=== PATIENT | female | born 1965 | race Caucasian/White ===

== ENCOUNTER 2016-09-21 00:48 | Emergency (ER) | payer OTHER ==
--- NOTE | 2016-09-21 01:54 | ED ORDER SUMMARY ---
..... Patient: GLADIS GARCIA OrderSheet [facility] VisitID: [id number] [place] [address] 51y, F Registration Date/Time: 09/21/2016 ORDER SHEET Weight: 95.2 kg (stated) Allergies: No Known Drug Allergy GENERAL ORDERS: I&D Tray (01:19 09/21/2016 José Wick) (1:31 Sam R.N.) MEDICATION ORDERS: Clindamycin PO 300 mg (NOW) (01:43 09/21/2016 José Wick) (2:00 Marissa R.NNeil) IV FLUIDS: ORDER SHEET NOTES: [Electronically signed by Scott Ward Dr. (01:56 09/21/2016)] [Electronically signed by Gustavo Dave R.N. (02:06 09/21/2016)] [Electronically locked/signed by Gustavo Dave R.N. (02:06 09/21/2016)]
--- NOTE | 2016-09-21 01:54 | ED CLINICAL REPORT ---
Clinical Report - Physicians/Mid Levels [facility] [address] [place] [address] 09/21/2016 0:47 Patient: GLADIS GARCIA Time Seen: 00:56; initial patient contact. Arrived- By private vehicle. Historian- patient. HISTORY OF PRESENT ILLNESS Chief Complaint: BOIL. This started about 3 days ago and is still present and worsening. It was gradual in onset. It is described as painful. It has been located in the right axilla. No cause has been identified. No recent insect bite. Similar symptoms previously: None. Recent medical care: Not recently seen/assessed. REVIEW OF SYSTEMS No fever, chills, nausea or vomiting. She has had a single skin lesion described as painful, abscess. All systems otherwise negative, except as recorded above. PAST HISTORY Mesenteric Melba Embolus. URI. Arthritis. SURGERIES: Carpal Tunnel Surgery. Tonsillectomy. SOCIAL HISTORY Current every day smoker. Regular alcohol use. No drug use. ADDITIONAL NOTES The nursing notes have been reviewed. PHYSICAL EXAM Vital Signs: 09/21/2016 00:57 BP: 128/65. HR: 107. RR: 24. O2 saturation: 95%. Temp: 98.2 F. Pain level now: 7/10. Have been reviewed. Blood pressure normal. Tachycardic. Tachypneic. Temperature normal. Oxygen saturation normal. Appearance: Alert. Oriented X3. No acute distress. Eyes: Conjunctivae and eyelids normal. ENT: Pharynx normal. Skin: Skin warm and dry. Normal skin color. Single medium abscess with fluctuance, pointing and cellulitis to right axilla. No drainage. Extremities: Extremities nontender. Neuro: Oriented X 3. No motor deficit. PROGRESS AND PROCEDURES Incision & Drainage of Abscess: Time: 01:53. Per protocol, time-out completed immediately before the procedure. The abscess is located in the right axilla. The risks of the procedure, benefits and alternatives were explained. Local anesthesia provided using 2% lidocaine. Skin cleansed with Shur-Clens. A moderate amount of pus was drained. Cavity was irrigated with saline and packed with gauze. Sample obtained for cultures. A dressing was applied. Estimated blood loss: 5 mL. Disposition: Discharged home in good and improved condition. Condition: good. CLINICAL IMPRESSION Single deep abscess to the right axilla with incision and drainage. INSTRUCTIONS Your Current Medications: CONTINUE TAKING THE FOLLOWING MEDICATIONS: Aspirin Oral. Maloxicam*. Omeprazole Oral : 20 mg 2x a day. Prescription Medications: Hydrocodone/APAP 5mg / 325mg: take 1 orally every 6 hours as needed for pain. Dispense ten (10). No refill. Clindamycin 300 mg: take 1 capsule orally every 6 hours for 7 days. No refill. Follow-up: Return to the emergency department in two days for packing removal. Follow up with your doctor in about two days. Call for an appointment. Screening today revealed the patient's blood pressure to be in the pre-hypertensive range. The patient should follow up with a primary care provider for blood pressure management. (Electronically signed by Scott Ward Dr. 09/21/2016 1:56)
--- NOTE | 2016-09-21 01:54 | ED CLINICAL REPORT ---
Clinical Report - Physicians/Mid Levels [facility] [address] [place] [address] 09/21/2016 0:47 Patient: GLADIS GARCIA Time Seen: 00:56; initial patient contact. Arrived- By private vehicle. Historian- patient. HISTORY OF PRESENT ILLNESS Chief Complaint: BOIL. This started about 3 days ago and is still present and worsening. It was gradual in onset. It is described as painful. It has been located in the right axilla. No cause has been identified. No recent insect bite. Similar symptoms previously: None. Recent medical care: Not recently seen/assessed. REVIEW OF SYSTEMS No fever, chills, nausea or vomiting. She has had a single skin lesion described as painful, abscess. All systems otherwise negative, except as recorded above. PAST HISTORY Mesenteric Melba Embolus. URI. Arthritis. SURGERIES: Carpal Tunnel Surgery. Tonsillectomy. SOCIAL HISTORY Current every day smoker. Regular alcohol use. No drug use. ADDITIONAL NOTES The nursing notes have been reviewed. PHYSICAL EXAM Vital Signs: 09/21/2016 00:57 BP: 128/65. HR: 107. RR: 24. O2 saturation: 95%. Temp: 98.2 F. Pain level now: 7/10. Have been reviewed. Blood pressure normal. Tachycardic. Tachypneic. Temperature normal. Oxygen saturation normal. Appearance: Alert. Oriented X3. No acute distress. Eyes: Conjunctivae and eyelids normal. ENT: Pharynx normal. Skin: Skin warm and dry. Normal skin color. Single medium abscess with fluctuance, pointing and cellulitis to right axilla. No drainage. Extremities: Extremities nontender. Neuro: Oriented X 3. No motor deficit. PROGRESS AND PROCEDURES Incision & Drainage of Abscess: Time: 01:53. Per protocol, time-out completed immediately before the procedure. The abscess is located in the right axilla. The risks of the procedure, benefits and alternatives were explained. Local anesthesia provided using 2% lidocaine. Skin cleansed with Shur-Clens. A moderate amount of pus was drained. Cavity was irrigated with saline and packed with gauze. Sample obtained for cultures. A dressing was applied. Estimated blood loss: 5 mL. Disposition: Discharged home in good and improved condition. Condition: good. CLINICAL IMPRESSION Single deep abscess to the right axilla with incision and drainage. INSTRUCTIONS Your Current Medications: CONTINUE TAKING THE FOLLOWING MEDICATIONS: Aspirin Oral. Maloxicam*. Omeprazole Oral : 20 mg 2x a day. Prescription Medications: Hydrocodone/APAP 5mg / 325mg: take 1 orally every 6 hours as needed for pain. Dispense ten (10). No refill. Clindamycin 300 mg: take 1 capsule orally every 6 hours for 7 days. No refill. Follow-up: Return to the emergency department in two days for packing removal. Follow up with your doctor in about two days. Call for an appointment. Screening today revealed the patient's blood pressure to be in the pre-hypertensive range. The patient should follow up with a primary care provider for blood pressure management. (Electronically signed by Scott Ward Dr. 09/21/2016 1:56)
--- NOTE | 2016-09-21 01:54 | ED ORDER SUMMARY ---
..... Patient: GLADIS GARCIA OrderSheet [facility] VisitID: [id number] [place] [address] 51y, F Registration Date/Time: 09/21/2016 ORDER SHEET Weight: 95.2 kg (stated) Allergies: No Known Drug Allergy GENERAL ORDERS: I&D Tray (01:19 09/21/2016 José Wick) (1:31 Sam R.N.) MEDICATION ORDERS: Clindamycin PO 300 mg (NOW) (01:43 09/21/2016 José Wick) (2:00 Marissa R.NNeil) IV FLUIDS: ORDER SHEET NOTES: [Electronically signed by Scott Ward Dr. (01:56 09/21/2016)] [Electronically signed by Gustavo Dave R.N. (02:06 09/21/2016)] [Electronically locked/signed by Gustavo Dave R.N. (02:06 09/21/2016)]
--- NOTE | 2016-09-21 01:54 | ED NURSING NOTES ---
Clinical Report - Nurses [facility] [address] [place] [address] 09/21/2016 0:47 [id number] Triage time 00:58. Acuity: LEVEL 4. Chief Complaint: BOIL and TENDER AREA. Alert. No acute distress. NAREN COMA SCORE: Naren Coma Scale: 15- eyes open spontaneously (4); best verbal response- oriented x 4 (5); best motor response- obeys commands (6). --01:03 Gustavo Dave R.N. 00:57 09/21/16. BP: 128/65. HR: 107. RR: 24 (regular and unlabored). O2 saturation: 95% on room air. Temp: 98.2 F (oral). Pain level now: 11/03. --01:03 Gustavo Dave R.N. Weight: 95.2 kg stated. Height/Length: 66 inches Per Patient. BMI: 33.9. --01:02 Gustavo Dave R.N. Medications Omeprazole Oral 20 mg, 2x a day. --00:59 Gustavo Dave R.N. Maloxicam. --01:00 Gustavo Dave R.N. Aspirin Oral. --01:00 Gustavo Dave R.N. Allergies No Known Drug Allergy. --00:59 Gustavo Dave R.N. History Arrived by private vehicle. Historian: patient. Unaccompanied. Reported as (right axilla area). Onset. (2 days ago). PAST MEDICAL HX: ( denies a chance of having ). SOCIAL HX: Heavy tobacco smoker (cigarette)- 1 pack per day. Regular alcohol use. No drug use. ( states that she feels safe at home, denies HI/SI). --01:03 Gustavo Dave R.N. PROBLEMS: Mesenteric Melba Embolus. URI. Arthritis. --01:01 Gustavo Dave R.N. ADDITIONAL SURGERIES: Carpal Tunnel Surgery. Tonsillectomy. --01:02 Gustavo Dave R.N. Interventions ID band on patient. To treatment room. --01:03 Gustavo Dave R.N. PHYSICAL ASSESSMENT Ambulatory to room. ( patient states having abscesses in the past. she has a red raised area of tenderness under right armpit, starting 2 days ago. tender to touch and movement.). GENERAL / NEURO / PSYCH: Alert. Oriented X 4. Does not appear anxious or in distress. HEENT: Mucous membranes are pink. RESPIRATORY: Respirations not labored. CVS: Capillary refill less than 2 seconds. GI / : Abdomen nontender. SKIN: Skin is warm and dry. --01:04 Gustavo Dave R.N. NURSING PROGRESS NOTES Patient gowned. Head of bed elevated. Reassurance given. Two patient identifiers checked. Call light placed in reach. Side rails up x 1. Bed placed in lowest position. Brakes of bed on. Patient ready for evaluation- chart flagged. Patient waiting for evaluation. --01:05 Gustavo Dave R.N. 01:50 09/21/2016 Clindamycin PO Capsules 300 mg given. Allergies verified and confirmed 5 rights. --02:00 Gustavo Dave R.N. ( I bandaged the patient's right arm pit abscess site with a 4x4 and a tegaderm per Dr. Ward's instructions.). --02:00 Gustavo Dave R.N. DISPOSITION / DISCHARGE Departure time: 02:05. Condition at departure: stable. Discharge instructions provided and reviewed with the patient. Reviewed warnings. Reviewed medication(s) side effects, precautions, dosing and course information. Prescription(s) given to the patient. Treatments reviewed. Reviewed referrals for followup. Patient verbalized understanding. Written instructions provided in Niuean. The patient was discharged home and unaccompanied at time of discharge. She left the Emergency Department ambulatory and via private vehicle. Patient driving. --02:06 Gustavo Dave R.N. 02:00 09/21/16. BP: 128/81 taken on the left arm, while sitting. HR: 102. RR: 24 (regular and unlabored). O2 saturation: 96% on room air. Temp: 97.6 F (oral). Pain level now: 11/03. --02:06 Gustavo Dave R.N. Locked/Released at 09/21/2016 2:06 by Gustavo Dave R.N.
--- NOTE | 2016-09-21 02:07 | ED DISCHARGE INSTRUCTIONS ---
Patient: GLADIS GARCIA General Instructions [facility] VisitID: [id number] [place] [address] 51y, F Registration Date/Time: 09/21/2016 Single deep abscess to the right axilla with incision and drainage. INSTRUCTIONS Your Current Medications: CONTINUE TAKING THE FOLLOWING MEDICATIONS: Aspirin Oral. Maloxicam*. Omeprazole Oral : 20 mg 2x a day. Prescription Medications: Hydrocodone/APAP 5mg / 325mg: take 1 orally every 6 hours as needed for pain. Dispense ten (10). No refill. Clindamycin 300 mg: take 1 capsule orally every 6 hours for 7 days. No refill. Follow-up: Return to the emergency department in two days for packing removal. Follow up with your doctor in about two days. Call for an appointment. Screening today revealed the patient's blood pressure to be in the pre-hypertensive range. The patient should follow up with a primary care provider for blood pressure management. ADDITIONAL INFORMATION Abscess [Incision & Drainage] An abscess (sometimes called a boil) occurs when bacteria get trapped under the skin and begin to grow. Pus forms inside the abscess as the body responds to the bacteria. An abscess can occur with an insect bite, ingrown hair, blocked oil gland, pimple, cyst, or puncture wound. Treatment of your abscess has required an incision to drain the pus. If the abscess pocket was large, a gauze packing may have been inserted. This will need to be removed and possibly replaced on your next visit. Antibiotics are not required in the treatment of a simple abscess, unless the infection is spreading into the skin around the wound (known as cellulitis). Healing of the wound will take about one to two weeks depending on the size of the abscess. Healthy tissue will grow from the bottom and sides of the opening until it seals over. Home Care: The wound may drain for the first two days. Cover the wound with a clean dry dressing. If the dressing becomes soaked with blood or pus, change it. If a gauze packing was placed inside the abscess cavity, you may be advised to remove it yourself. You may do this in the shower. Once the packing is removed, you should wash the area in the shower or bath 3 to 4 times a day, until the skin opening has closed. If you were prescribed antibiotics, take them as directed until they are all gone. You may use acetaminophen (Tylenol) or ibuprofen (Motrin, Advil) to control pain, unless another pain medicine was prescribed. [ NOTE: If you have liver disease or ever had a stomach ulcer, talk with your doctor before using these medicines.] Follow Up with your doctor as advised by our staff. If a gauze packing was inserted in your wound, it should be removed in 1-2 days. Check your wound every day for the signs of worsening infection listed below. Get Prompt Medical Attention if any of the following occur: Increasing redness or swelling Red streaks in the skin leading away from the wound Increasing local pain or swelling Continued pus draining from the wound two days after treatment Fever of 100.4F (38C) or higher, or as directed by your healthcare provider Hydrocodone Bitartrate, Acetaminophen Oral tablet What is this medicine? ACETAMINOPHEN; HYDROCODONE (a set a CIARAN susan fen; lety droe KOE done) is a pain reliever. It is used to treat mild to moderate pain. How should I use this medicine? Take this medicine by mouth. Swallow it with a full glass of water. Follow the directions on the prescription label. If the medicine upsets your stomach, take the medicine with food or milk. Do not take more than you are told to take. Talk to your wastewater plant civil engineer regarding the use of this medicine in children. This medicine is not approved for use in children. What side effects may I notice from receiving this medicine? Side effects that you should report to your doctor or health client care coordinator as soon as possible: allergic reactions like skin rash, itching or hives, swelling of the face, lips, or tongue breathing problems confusion feeling faint or lightheaded, falls stomach pain yellowing of the eyes or skin Side effects that usually do not require medical attention (report to your doctor or health client care coordinator if they continue or are bothersome): nausea, vomiting stomach upset What may interact with this medicine? alcohol antihistamines isoniazid medicines for depression, anxiety, or psychotic disturbances medicines for sleep muscle relaxants naltrexone narcotic medicines (opiates) for pain phenobarbital ritonavir tramadol What if I miss a dose? If you miss a dose, take it as soon as you can. If it is almost time for your next dose, take only that dose. Do not take double or extra doses. Where should I keep my medicine? Keep out of the reach of children. This medicine can be abused. Keep your medicine in a safe place to protect it from theft. Do not share this medicine with anyone. Selling or giving away this medicine is dangerous and against the law. Store at room temperature between 15 and 30 degrees C (59 and 86 degrees F). Protect from light. Keep container tightly closed. Throw away any unused medicine after the expiration date. Discard unused medicine and used packaging carefully. Pets and children can be harmed if they find used or lost packages. What should I tell my health care provider before I take this medicine? They need to know if you have any of these conditions: brain tumor Crohn's disease, inflammatory bowel disease, or ulcerative colitis drink more than 3 alcohol-containing drinks per day drug abuse or addiction head injury heart or circulation problems kidney disease or problems going to the bathroom liver disease lung disease, asthma, or breathing problems an unusual or allergic reaction to acetaminophen, hydrocodone, other opioid analgesics, other medicines, foods, dyes, or preservatives or trying to get breast-feeding What should I watch for while using this medicine? Tell your doctor or health client care coordinator if your pain does not go away, if it gets worse, or if you have new or a different type of pain. You may develop tolerance to the medicine. Tolerance means that you will need a higher dose of the medicine for pain relief. Tolerance is normal and is expected if you take the medicine for a long time. Do not suddenly stop taking your medicine because you may develop a severe reaction. Your body becomes used to the medicine. This does NOT mean you are addicted. Addiction is a behavior related to getting and using a drug for a non-medical reason. If you have pain, you have a medical reason to take pain medicine. Your doctor will tell you how much medicine to take. If your doctor wants you to stop the medicine, the dose will be slowly lowered over time to avoid any side effects. You may get drowsy or dizzy when you first start taking the medicine or change doses. Do not drive, use machinery, or do anything that may be dangerous until you know how the medicine affects you. Stand or sit up slowly. There are different types of narcotic medicines (opiates) for pain. If you take more than one type at the same time, you may have more side effects. Give your health care provider a list of all medicines you use. Your doctor will tell you how much medicine to take. Do not take more medicine than directed. Call emergency for help if you have problems breathing. The medicine will cause constipation. Try to have a bowel movement at least every 2 to 3 days. If you do not have a bowel movement for 3 days, call your doctor or health client care coordinator. Too much acetaminophen can be very dangerous. Do not take Tylenol (acetaminophen) or medicines that contain acetaminophen with this medicine. Many non-prescription medicines contain acetaminophen. Always read the labels carefully. Clindamycin Hydrochloride Oral capsule What is this medicine? CLINDAMYCIN (JOON Barcenas) is a lincosamide antibiotic. It is used to treat certain kinds of bacterial infections. It will not work for colds, flu, or other viral infections. How should I use this medicine? Take this medicine by mouth with a full glass of water. Follow the directions on the prescription label. You can take this medicine with food or on an empty stomach. If the medicine upsets your stomach, take it with food. Take your medicine at regular intervals. Do not take your medicine more often than directed. Take all of your medicine as directed even if you think your are better. Do not skip doses or stop your medicine early. Talk to your wastewater plant civil engineer regarding the use of this medicine in children. Special care may be needed. What side effects may I notice from receiving this medicine? Side effects that you should report to your doctor or health client care coordinator as soon as possible: allergic reactions like skin rash, itching or hives, swelling of the face, lips, or tongue dark urine pain on swallowing redness, blistering, peeling or loosening of the skin, including inside the mouth unusual bleeding or bruising unusually weak or tired yellowing of eyes or skin Side effects that usually do not require medical attention (report to your doctor or health client care coordinator if they continue or are bothersome): diarrhea itching in the rectal or genital area joint pain nausea, vomiting stomach pain What may interact with this medicine? chloramphenicol erythromycin kaolin products What if I miss a dose? If you miss a dose, take it as soon as you can. If it is almost time for your next dose, take only that dose. Do not take double or extra doses. Where should I keep my medicine? Keep out of the reach of children. Store at room temperature between 20 and 25 degrees C (68 and 77 degrees F). Throw away any unused medicine after the expiration date. What should I tell my health care provider before I take this medicine? They need to know if you have any of these conditions: kidney disease liver disease stomach problems like colitis an unusual or allergic reaction to clindamycin, lincomycin, or other medicines, foods, dyes like tartrazine or preservatives or trying to get breast-feeding What should I watch for while using this medicine? Tell your doctor or healthcare professional if your symptoms do not start to get better or if they get worse. Do not treat diarrhea with over the counter products. Contact your doctor if you have diarrhea that lasts more than 2 days or if it is severe and watery. You have been given the following additional information: Abscess, Incision And Drainage Hydrocodone Bitartrate, Acetaminophen Oral tablet Clindamycin Hydrochloride Oral capsule (Electronically signed by Scott Ward Dr. 09/21/2016 1:56)
--- NOTE | 2016-09-21 02:07 | ED MAR SUMMARY ---
..... Medication Administration Record [facility] [address] [place] [address] Patient: GLADIS GARCIA Visit ID: [id number] 51y, F Weight: 95.2 kg Height/Length: 66 in BMI: 33.9 ALLERGIES: No Known Drug Allergy Given 01:50 09/21/2016 Gustavo Dave R.N. Medication Administered: CLINDAMYCIN [PO], Dose: 300 mg Capsules PO. Medication Ordered: Clindamycin PO 300 mg (NOW).
--- NOTE | 2016-09-21 02:07 | ED MAR SUMMARY ---
..... Medication Administration Record [facility] [address] [place] [address] Patient: GLADIS GARCIA Visit ID: [id number] 51y, F Weight: 95.2 kg Height/Length: 66 in BMI: 33.9 ALLERGIES: No Known Drug Allergy Given 01:50 09/21/2016 Gustavo Dave R.N. Medication Administered: CLINDAMYCIN [PO], Dose: 300 mg Capsules PO. Medication Ordered: Clindamycin PO 300 mg (NOW).
--- NOTE | 2016-09-21 02:07 | ED MED RECONCILIATION SUMMARY ---
Patient: GLADIS GARCIA Medication Reconciliation Report [facility] VisitID: [id number] [place] [address] 51y, F Registration Date/Time: 09/21/2016 Weight: 95.2 kg Height/Length: 66 in. BMI: 33.9 ALLERGIES: No Known Drug Allergy The patient's Home Medications are listed below: CONTINUE TAKING THE FOLLOWING MEDICATIONS: Aspirin Oral Maloxicam Omeprazole Oral 20 mg, 2x a day The source(s) of the original Home Medication information: Not obtained. The following Medications were given to the patient in the Emergency Department: Clindamycin [PO] PO 300 mg, administered: 09/21/2016 1:50:00 AM The following Medications were prescribed to the patient: Hydrocodone/APAP 5mg / 325mg: take 1 orally every 6 hours as needed for pain. Dispense ten (10). No refill. -- Scott Ward Dr. Clindamycin 300 mg: take 1 capsule orally every 6 hours for 7 days. No refill. -- Scott Ward Dr.
--- NOTE | 2016-09-21 02:07 | ED MED RECONCILIATION SUMMARY ---
Patient: GLADIS GARCIA Medication Reconciliation Report [facility] VisitID: [id number] [place] [address] 51y, F Registration Date/Time: 09/21/2016 Weight: 95.2 kg Height/Length: 66 in. BMI: 33.9 ALLERGIES: No Known Drug Allergy The patient's Home Medications are listed below: CONTINUE TAKING THE FOLLOWING MEDICATIONS: Aspirin Oral Maloxicam Omeprazole Oral 20 mg, 2x a day The source(s) of the original Home Medication information: Not obtained. The following Medications were given to the patient in the Emergency Department: Clindamycin [PO] PO 300 mg, administered: 09/21/2016 1:50:00 AM The following Medications were prescribed to the patient: Hydrocodone/APAP 5mg / 325mg: take 1 orally every 6 hours as needed for pain. Dispense ten (10). No refill. -- Scott Ward Dr. Clindamycin 300 mg: take 1 capsule orally every 6 hours for 7 days. No refill. -- Scott Ward Dr.
== END 2016-09-21 02:05 | disposition home or self-care (01) ==
LOC: ED SRH 00:48
DX: L02.411 Cutaneous abscess of right axilla (principal); Z79.82 Long term (current) use of aspirin; Z79.899 Other long term (current) drug therapy; Z79.1 Long term (current) use of non-steroidal anti-inflammatories (NSAID); F17.210 Nicotine dependence, cigarettes, uncomplicated

== ENCOUNTER 2016-09-23 01:29 | Emergency (ER) | payer OTHER ==
--- NOTE | 2016-09-23 01:56 | ED CLINICAL REPORT ---
Clinical Report - Physicians/Mid Levels [facility] [address] [place] [address] 09/23/2016 1:30 Patient: GLADIS GARCIA Time Seen: 0136; initial patient contact. Arrived- By private vehicle. Historian- patient. HISTORY OF PRESENT ILLNESS Chief Complaint: BOIL. This started past week or more and is still present but is improving. It was abrupt in onset and has been constant but is not gone now. It is described as painful. It has been located on the right upper extremity (axilla). (Doing well. Taking abx as directed. No problems.). Similar symptoms previously: Recent medical care: The patient was seen recently in the emergency department (had abscess I & D.). REVIEW OF SYSTEMS No fever, difficulty breathing, chest pain or abdominal pain. All systems otherwise negative, except as recorded above. PAST HISTORY See nurses notes. Tetanus immunization status is up-to-date. Medications: Aspirin Oral. Maloxicam. Omeprazole Oral 20 mg, 2x a day. Allergies: No Known Drug Allergy. SOCIAL HISTORY Smoker- current status unknown. Alcohol use. No drug use. ADDITIONAL NOTES The nursing notes have been reviewed. PHYSICAL EXAM Vital Signs: 09/23/2016 01:36 BP: 119/69. HR: 94. RR: 18. O2 saturation: 95%. Temp: 97.7 F. Pain level now: 0/10. Blood pressure normal. Oxygen saturation normal. Appearance: Alert. Oriented X3. No acute distress. CVS: Normal heart rate and rhythm. Heart sounds normal. Respiratory: No respiratory distress. Breath sounds normal. Chest nontender. Abdomen: Nontender. No organomegaly. Skin: Small area of cellulitis with tenderness, erythema and warmth to right axilla. Single small abscess (drained with packing. no active drainage or bleeding. no crepitus. appropriately tender.). PROGRESS AND PROCEDURES Abscess Recheck: The abscess is located on the right axilla. Packing is present. Examination of abscess reveals normal healing. Mild erythema present at the abscess margins. Mild tenderness present. Skin cleansed with Betadine. Packing was removed and the cavity was repacked with gauze. (no complications. patient tolerated procedure well. blood loss < 1 cc.). Course of Care: The patient is a pleasant 51 yo female with recent abscess I & D. No systemic symptoms. Patient following instructions for wound care and abx. No signs of worsening infection. Wound appears to be improved based on review of prior visit. Wound repacked. No complications. Patient instructed to follow up in 24 - 48 hours. Patient stable outpatien candidate. Discussed wound infection precautions. Does not need med refills. patient stable outpatient candidate. Disposition: Discharged. Condition: good. CLINICAL IMPRESSION 09/23/2016 01:36 BP: 119/69. HR: 94. RR: 18. O2 saturation: 95%. Temp: 97.7 F. Pain level now: 0/10. Wound check (abscess). Blood pressure normal. Oxygen saturation normal. INSTRUCTIONS (continue taking your medications and follow your discharge instructions from the last visit. Wound needs to also be rechecked again in 24 - 48 hours.). Warnings: GENERAL WARNINGS: Return or contact your physician immediately if your condition worsens or changes unexpectedly, if not improving as expected, or if other problems arise. Specifically return if pain, vomiting, bleeding, breathing difficulty or fever. Your Current Medications: CONTINUE TAKING THE FOLLOWING MEDICATIONS: Aspirin Oral. Maloxicam*. Omeprazole Oral : 20 mg 2x a day. Follow-up: Return to the emergency department as needed. Follow up with your doctor. Reason for referral: recheck today's concerns in 24 - 48 hours. Summary of care provided to patient via paper. Screening today revealed the patient's blood pressure to be in the normal range. The patient should follow up with a primary care provider for blood pressure management. Understanding of the discharge instructions verbalized by patient. (Electronically signed by Max Wilcox Dr. 09/23/2016 3:37)
--- NOTE | 2016-09-23 01:56 | ED NURSING NOTES ---
Clinical Report - Nurses [facility] [address] [place] [address] 09/23/2016 1:30 Patient: GLADIS GARCIA TRIAGE Triage time 01:34. Acuity: LEVEL 4. Chief Complaint: wound recheck. --01:44 Yoly Villarreal R.N. 01:36 09/23/16. BP: 119/69 taken on the left arm, while lying. HR: 94 (regular). RR: 18. O2 saturation: 95% on room air. Temp: 97.7 F (oral). Pain level now: 0/10. --01:44 Yoly Villarreal R.N. Weight: 95.2 kg stated. Height/Length: 66 inches Per Patient. BMI: 33.9. --01:43 Yoly Villarreal R.N. Medications Aspirin Oral. Maloxicam. Omeprazole Oral 20 mg, 2x a day. --01:44 Yoly Villarreal R.N. Allergies No Known Drug Allergy. --01:44 Yoly Villarreal R.N. History Arrived by private vehicle. Historian: patient. Unaccompanied. Primary physician (joselyn). Reported as located in the right axilla. Onset. (several days ago). ( seen 2 days ago I&D and packed and back today for recheck and dressing change). PAST MEDICAL HX: Last normal menstrual period- about 2 weeks ago. SOCIAL HX: Heavy tobacco smoker (cigarette)- 1 pack per day. Regular alcohol use; consumes three liquor weekly and wine weekly. No drug use. ABUSE ASSESSMENT: No report of abuse. SELF HARM ASSESSMENT: A self harm assessment was performed. The patient answered "no" to the question "Have you recently felt down, depressed, or hopeless?", "Have you noticed less interest or pleasure in doing things?", "Do you have thoughts of harming or killing yourself?", "Are you here because you tried to hurt yourself?", "Have you ever tried to hurt yourself before today?", "Have you recently had thoughts about harming or killing others?" and "Do you have any dangerous items in your possession?". FALL RISK ASSESSMENT: Fall risk assessment completed. No fall risk identified. NUTRITIONAL RISK ASSESSMENT: The nutritional risk assessment revealed no deficiencies. FUNCTIONAL ASSESSMENT: Functional assessment: no impairments noted. LEARNING NEEDS ASSESSMENT: The learning needs assessment revealed no barriers. SKIN INTEGRITY ASSESSMENT: Skin integrity risk assessment completed. No skin integrity risk identified. --:44 Yoly Villarreal R.N. PAST MEDICAL HX: Immunizations: up-to-date. --:44 Yoly Villarreal R.N. PROBLEMS: Abscess. Mesenteric Melba Embolus. Contact Dermatitis. Nephrolithiasis. Renal Colic. Arthritis. --:45 Yoly Villarreal R.N. ADDITIONAL SURGERIES: Carpal Tunnel Surgery. Tonsillectomy. --:45 Yoly Villarreal R.N. Interventions ID band on patient. --:44 Yoly Villarreal R.N. PHYSICAL ASSESSMENT Ambulatory to room. GENERAL / NEURO / PSYCH: Alert. The patient does not appear to be in acute distress. Oriented X 4. HEENT: Pupils equal, round and reactive to light. Mucous membranes are pink. RESPIRATORY: Respirations not labored. Breath sounds within normal limits. CVS: Capillary refill less than 2 seconds. Pulses within normal limits. GI / : Abdomen nontender. SKIN: Skin is warm and dry. Normal skin turgor. Single small superficial incision with erythema and tenderness in the right axilla. Erythema present. --01:46 Yoly Villarreal R.N. NURSING PROGRESS NOTES Patient gowned. Two patient identifiers checked. Call light placed in reach. Side rails up x 1. Bed placed in lowest position. Brakes of bed on. --01:46 Yoly Villarreal R.N. Patient ready for evaluation- chart flagged. --01:46 Yoly Villarreal R.N. Packing removed from wound by ED physician. Patient tolerated procedure well. Applied dressing consisting of Band-Aid. ( Right axilla wound repacked and pt given instructions on wound care). --01:49 Yoly Villarreal R.N. DISPOSITION / DISCHARGE Condition at departure: improved and stable. No learning barriers present. Discharge instructions provided and reviewed with the patient. Reviewed wound care instructions. Patient verbalized understanding. Written instructions provided in Italian. No warning instructions, medication instructions or activity restrictions. The patient was discharged home and unaccompanied at time of discharge. She left the Emergency Department ambulatory and via private vehicle. Patient driving. --02:20 Yoly Villarreal R.N. 01:59 09/23/16. BP: deferred. HR: deferred. RR: deferred. O2 saturation: deferred. Temp: deferred. Pain level now deferred. --02:20 Yoly Villarreal R.N. Departure time: 0159. --02:20 Yoly Villarreal R.N. Locked/Released at 09/23/2016 2:20 by Yoly Villarreal R.N.
--- NOTE | 2016-09-23 03:37 | ED DISCHARGE INSTRUCTIONS ---
Patient: GLADIS GARCIA General Instructions [facility] VisitID: [id number] [place] [address] 51y, F Registration Date/Time: 09/23/2016 09/23/2016 01:36 BP: 119/69. HR: 94. RR: 18. O2 saturation: 95%. Temp: 97.7 F. Pain level now: 0/10. Wound check (abscess). Blood pressure normal. Oxygen saturation normal. INSTRUCTIONS (continue taking your medications and follow your discharge instructions from the last visit. Wound needs to also be rechecked again in 24 - 48 hours.). Warnings: GENERAL WARNINGS: Return or contact your physician immediately if your condition worsens or changes unexpectedly, if not improving as expected, or if other problems arise. Specifically return if pain, vomiting, bleeding, breathing difficulty or fever. Your Current Medications: CONTINUE TAKING THE FOLLOWING MEDICATIONS: Aspirin Oral. Maloxicam*. Omeprazole Oral : 20 mg 2x a day. Follow-up: Return to the emergency department as needed. Follow up with your doctor. Reason for referral: recheck today's concerns in 24 - 48 hours. Summary of care provided to patient via paper. Screening today revealed the patient's blood pressure to be in the normal range. The patient should follow up with a primary care provider for blood pressure management. Understanding of the discharge instructions verbalized by patient. (Electronically signed by Max Wilcox Dr. 09/23/2016 3:37)
--- NOTE | 2016-09-23 03:37 | ED MED RECONCILIATION SUMMARY ---
Patient: GLADIS GARCIA Medication Reconciliation Report [facility] VisitID: [id number] [address] [place] [address] 51y, F Registration Date/Time: 09/23/2016 Weight: 95.2 kg Height/Length: 66 in. BMI: 33.9 ALLERGIES: No Known Drug Allergy The patient's Home Medications are listed below: CONTINUE TAKING THE FOLLOWING MEDICATIONS: Aspirin Oral Maloxicam Omeprazole Oral 20 mg, 2x a day The source(s) of the original Home Medication information: Not obtained. The following Medications were given to the patient in the Emergency Department: None. The following Medications were prescribed to the patient: None.
--- NOTE | 2016-09-23 03:37 | ED MAR SUMMARY ---
..... Medication Administration Record [facility] [address] [place], [place] [id number] Patient: GLADIS GARCIA Visit ID: [id number] 51y, F Weight: 95.2 kg Height/Length: 66 in BMI: 33.9 ALLERGIES: No Known Drug Allergy
--- NOTE | 2016-09-23 03:37 | ED MED RECONCILIATION SUMMARY ---
Patient: GLADIS GARCIA Medication Reconciliation Report [facility] VisitID: [id number] [address] [place] [address] 51y, F Registration Date/Time: 09/23/2016 Weight: 95.2 kg Height/Length: 66 in. BMI: 33.9 ALLERGIES: No Known Drug Allergy The patient's Home Medications are listed below: CONTINUE TAKING THE FOLLOWING MEDICATIONS: Aspirin Oral Maloxicam Omeprazole Oral 20 mg, 2x a day The source(s) of the original Home Medication information: Not obtained. The following Medications were given to the patient in the Emergency Department: None. The following Medications were prescribed to the patient: None.
--- NOTE | 2016-09-23 03:37 | ED MAR SUMMARY ---
..... Medication Administration Record [facility] [address] [place], [place] [id number] Patient: GLADIS GARCIA Visit ID: [id number] 51y, F Weight: 95.2 kg Height/Length: 66 in BMI: 33.9 ALLERGIES: No Known Drug Allergy
--- NOTE | 2016-09-23 03:37 | ED DISCHARGE INSTRUCTIONS ---
Patient: GLADIS GARCIA General Instructions [facility] VisitID: [id number] [place] [address] 51y, F Registration Date/Time: 09/23/2016 09/23/2016 01:36 BP: 119/69. HR: 94. RR: 18. O2 saturation: 95%. Temp: 97.7 F. Pain level now: 0/10. Wound check (abscess). Blood pressure normal. Oxygen saturation normal. INSTRUCTIONS (continue taking your medications and follow your discharge instructions from the last visit. Wound needs to also be rechecked again in 24 - 48 hours.). Warnings: GENERAL WARNINGS: Return or contact your physician immediately if your condition worsens or changes unexpectedly, if not improving as expected, or if other problems arise. Specifically return if pain, vomiting, bleeding, breathing difficulty or fever. Your Current Medications: CONTINUE TAKING THE FOLLOWING MEDICATIONS: Aspirin Oral. Maloxicam*. Omeprazole Oral : 20 mg 2x a day. Follow-up: Return to the emergency department as needed. Follow up with your doctor. Reason for referral: recheck today's concerns in 24 - 48 hours. Summary of care provided to patient via paper. Screening today revealed the patient's blood pressure to be in the normal range. The patient should follow up with a primary care provider for blood pressure management. Understanding of the discharge instructions verbalized by patient. (Electronically signed by Max Wilcox Dr. 09/23/2016 3:37)
== END 2016-09-23 01:59 | disposition home or self-care (01) ==
LOC: ED SRH 01:29
DX: L02.421 Furuncle of right axilla (principal); Z48.01 Encounter for change or removal of surgical wound dressing; Z79.82 Long term (current) use of aspirin; Z79.1 Long term (current) use of non-steroidal anti-inflammatories (NSAID); Z79.899 Other long term (current) drug therapy; F17.210 Nicotine dependence, cigarettes, uncomplicated

== ENCOUNTER 2016-09-24 14:27 | Emergency (ER) | payer OTHER ==
--- NOTE | 2016-09-24 14:50 | ED CLINICAL REPORT ---
Clinical Report - Physicians/Mid Levels [facility] [address] [place] [address] 09/24/2016 14:28 Patient: GLADIS GARCIA Time Seen: 1500 Sep 24 2016. Arrived- By private vehicle. Historian- patient. HISTORY OF PRESENT ILLNESS Chief Complaint: SKIN RASH. This started 5 days and is still present. It has been located on the right upper extremity (axilla). (patient denies fevers or chills, currently on antibiotics. Denies any excessive drainage. Reports improvement.). Recent medical care: The patient was seen recently by a health care provider (09/21 and 09/23). REVIEW OF SYSTEMS No fever or chills. All systems otherwise negative, except as recorded above. PAST HISTORY Problems: Wound Check. Mesenteric Melba Embolus. Contact Dermatitis. URI. Nephrolithiasis. Renal Colic. Immunizations. LNMP - Last Normal Menstrual Period. Arthritis. Additional Surgeries: Carpal Tunnel Surgery. Tonsillectomy. Medications: Aspirin Oral. Maloxicam. Omeprazole Oral 20 mg, 2x a day. Allergies: No Known Drug Allergy. SOCIAL HISTORY Alcohol use. No drug use. ADDITIONAL NOTES The nursing notes have been reviewed. PHYSICAL EXAM Vital Signs: 09/24/2016 14:35 BP: 109/71. HR: 89. RR: 15. O2 saturation: 98%. Temp: 98.1 F. Pain level now: 0/10. Appearance: Alert. ENT: Ears normal. Nose normal. CVS: Normal heart rate and rhythm. Heart sounds normal. Respiratory: No respiratory distress. Breath sounds normal. Skin: Skin warm. No tender indurated area. No cellulitis. Skin rash present- r. axilla with small 0.5 cm incision with packing, no tenderness, no erythema/ warmth/ swelling. No abscess. PROGRESS AND PROCEDURES PROCEDURES (packing removed). Course of Care: Here in the emergency Department patient was packing removed, no surrounding erythema, induration. Very stable. Patient is stable. Physical exam findings are improved. Symptoms better. Patient/family counseled. Disposition: Discharged. CLINICAL IMPRESSION Single abscess to the right axilla with incision and drainage (old). INSTRUCTIONS (motrin/ tylenol take all of your prescription antibiotics Hibiclens (Chlorhexidine) shower in 7 days). (Electronically signed by Ana Hancock P.A.-C 09/24/2016 15:10)
--- NOTE | 2016-09-24 14:50 | ED CLINICAL REPORT ---
Clinical Report - Physicians/Mid Levels [facility] [address] [place] [address] 09/24/2016 14:28 Patient: GLADIS GARCIA Time Seen: 1500 Sep 24 2016. Arrived- By private vehicle. Historian- patient. HISTORY OF PRESENT ILLNESS Chief Complaint: SKIN RASH. This started 5 days and is still present. It has been located on the right upper extremity (axilla). (patient denies fevers or chills, currently on antibiotics. Denies any excessive drainage. Reports improvement.). Recent medical care: The patient was seen recently by a health care provider (09/21 and 09/23). REVIEW OF SYSTEMS No fever or chills. All systems otherwise negative, except as recorded above. PAST HISTORY Problems: Wound Check. Mesenteric Melba Embolus. Contact Dermatitis. URI. Nephrolithiasis. Renal Colic. Immunizations. LNMP - Last Normal Menstrual Period. Arthritis. Additional Surgeries: Carpal Tunnel Surgery. Tonsillectomy. Medications: Aspirin Oral. Maloxicam. Omeprazole Oral 20 mg, 2x a day. Allergies: No Known Drug Allergy. SOCIAL HISTORY Alcohol use. No drug use. ADDITIONAL NOTES The nursing notes have been reviewed. PHYSICAL EXAM Vital Signs: 09/24/2016 14:35 BP: 109/71. HR: 89. RR: 15. O2 saturation: 98%. Temp: 98.1 F. Pain level now: 0/10. Appearance: Alert. ENT: Ears normal. Nose normal. CVS: Normal heart rate and rhythm. Heart sounds normal. Respiratory: No respiratory distress. Breath sounds normal. Skin: Skin warm. No tender indurated area. No cellulitis. Skin rash present- r. axilla with small 0.5 cm incision with packing, no tenderness, no erythema/ warmth/ swelling. No abscess. PROGRESS AND PROCEDURES PROCEDURES (packing removed). Course of Care: Here in the emergency Department patient was packing removed, no surrounding erythema, induration. Very stable. Patient is stable. Physical exam findings are improved. Symptoms better. Patient/family counseled. Disposition: Discharged. CLINICAL IMPRESSION Single abscess to the right axilla with incision and drainage (old). INSTRUCTIONS (motrin/ tylenol take all of your prescription antibiotics Hibiclens (Chlorhexidine) shower in 7 days). (Electronically signed by Ana Hancock P.A.-C 09/24/2016 15:10)
--- NOTE | 2016-09-24 14:50 | ED NURSING NOTES ---
Clinical Report - Nurses [facility] [address] [place] [address] 09/24/2016 14:28 Patient: GLADSI GARCIA TRIAGE Triage time 14:35 Sep 24 2016. Chief Complaint: wound repacking to right axilla. Alert. No acute distress. SEPSIS SCREEN: Sepsis Screen. Negative (no infection suspected/documented). --14:44 Triston Cassidy R.N. 14:35 09/24/16. BP: 109/71. HR: 89. RR: 15. O2 saturation: 98%. Temp: 98.1 F. Pain level now: 0/10. --14:44 Triston Cassidy R.N. Weight: 95.2 kg stated. Height/Length: 66 inches Per Patient. BMI: 33.9. --14:35 Triston Cassidy R.N. Medications Aspirin Oral. Maloxicam. Omeprazole Oral 20 mg, 2x a day. --14:37 Triston Cassidy R.N. Allergies No Known Drug Allergy. --14:37 Triston Cassidy R.N. Medication/allergy information source: the patient. --14:44 Triston Cassidy R.N. History Arrived by private vehicle. Historian: patient. Accompanied by family. Onset. (pt here thursday morning for abscess to right axilla, was I/D and was seen here for repacking thursday am and now today). 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 PAST MEDICAL HX: Immunizations: up-to-date. SOCIAL HX: Smoker- current status unknown. Occasional alcohol use. No drug use. No infectious disease exposure. ABUSE ASSESSMENT: No report of abuse. SELF HARM ASSESSMENT: A self harm assessment was performed. The patient answered "no" to the question "Do you have thoughts of harming or killing yourself?". FALL RISK ASSESSMENT: Fall risk assessment completed. No fall risk identified. NUTRITIONAL RISK ASSESSMENT: The nutritional risk assessment revealed no deficiencies. FUNCTIONAL ASSESSMENT: Functional assessment: no impairments noted. LEARNING NEEDS ASSESSMENT: The learning needs assessment revealed no barriers. SKIN INTEGRITY ASSESSMENT: Skin integrity risk assessment completed. No skin integrity risk identified. --14:44 Triston Cassidy R.N. PROBLEMS: Wound Check. Abscess. Mesenteric Melba Embolus. Contact Dermatitis. URI. Nephrolithiasis. Renal Colic. Immunizations. LNMP - Last Normal Menstrual Period. Arthritis. --14:38 Triston Cassidy R.N. ADDITIONAL SURGERIES: Carpal Tunnel Surgery. Tonsillectomy. --14:38 Triston Cassidy R.N. Interventions ID band on patient. To treatment room. --14:44 Triston Cassidy R.N. PHYSICAL ASSESSMENT Ambulatory to room. Patient gowned. GENERAL / NEURO / PSYCH: Alert. The patient does not appear to be in acute distress. Oriented X 4. HEENT: Pupils equal, round and reactive to light. RESPIRATORY: Respirations not labored. CVS: Pulses within normal limits. GI / : Abdomen nontender. SKIN: Skin is warm and dry. --14:45 Triston Cassidy R.N. NURSING PROGRESS NOTES Patient identifiers checked. Call light placed in reach. Side rails up x 1. Bed placed in lowest position. Brakes of bed on. Patient ready for evaluation- chart flagged. --14:45 Triston Cassidy R.N. DISPOSITION / DISCHARGE Departure time: 1505 PM. Condition at departure: stable. The goals identified in the patient's plan of care were met. No learning barriers present. Discharge instructions provided and reviewed with the patient. Reviewed warnings (s/s of infection). Reviewed wound care instructions ([facility]). Patient verbalized understanding. Written instructions provided in Croatian. No medication instructions or referrals given to the patient. The patient was discharged by the physician psychiatric technician assistant. She was discharged home and unaccompanied at time of discharge. She left the Emergency Department ambulatory and via private vehicle. Patient driving. FALL RISK ASSESSMENT: Fall risk assessment completed. No fall risk identified. --15:02 Pearl Franco R.N. 15:00 09/24/16. BP: 109/71 (regular adult cuff) taken on the left arm, via an automated monitor, while sitting. HR: 89. RR: 15. O2 saturation: 98% on room air. Temp: 98 F (oral). Pain level now: 07/04. --15:02 Pearl Franco R.N. Locked/Released at 09/24/2016 18:50 by Pearl Franco R.N.
--- NOTE | 2016-09-24 14:50 | ED NURSING NOTES ---
Clinical Report - Nurses [facility] [address] [place] [address] 09/24/2016 14:28 Patient: GLADIS GARCIA TRIAGE Triage time 14:35 Sep 24 2016. Chief Complaint: wound repacking to right axilla. Alert. No acute distress. SEPSIS SCREEN: Sepsis Screen. Negative (no infection suspected/documented). --14:44 Triston Cassidy R.N. 14:35 09/24/16. BP: 109/71. HR: 89. RR: 15. O2 saturation: 98%. Temp: 98.1 F. Pain level now: 0/10. --14:44 Triston Cassidy R.N. Weight: 95.2 kg stated. Height/Length: 66 inches Per Patient. BMI: 33.9. --14:35 Triston Cassidy R.N. Medications Aspirin Oral. Maloxicam. Omeprazole Oral 20 mg, 2x a day. --14:37 Triston Cassidy R.N. Allergies No Known Drug Allergy. --14:37 Triston Cassidy R.N. Medication/allergy information source: the patient. --14:44 Triston Cassidy R.N. History Arrived by private vehicle. Historian: patient. Accompanied by family. Onset. (pt here thursday morning for abscess to right axilla, was I/D and was seen here for repacking thursday am and now today). 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 PAST MEDICAL HX: Immunizations: up-to-date. SOCIAL HX: Smoker- current status unknown. Occasional alcohol use. No drug use. No infectious disease exposure. ABUSE ASSESSMENT: No report of abuse. SELF HARM ASSESSMENT: A self harm assessment was performed. The patient answered "no" to the question "Do you have thoughts of harming or killing yourself?". FALL RISK ASSESSMENT: Fall risk assessment completed. No fall risk identified. NUTRITIONAL RISK ASSESSMENT: The nutritional risk assessment revealed no deficiencies. FUNCTIONAL ASSESSMENT: Functional assessment: no impairments noted. LEARNING NEEDS ASSESSMENT: The learning needs assessment revealed no barriers. SKIN INTEGRITY ASSESSMENT: Skin integrity risk assessment completed. No skin integrity risk identified. --14:44 Triston Cassidy R.N. PROBLEMS: Wound Check. Abscess. Mesenteric Melba Embolus. Contact Dermatitis. URI. Nephrolithiasis. Renal Colic. Immunizations. LNMP - Last Normal Menstrual Period. Arthritis. --14:38 Triston Cassidy R.N. ADDITIONAL SURGERIES: Carpal Tunnel Surgery. Tonsillectomy. --14:38 Triston Cassidy R.N. Interventions ID band on patient. To treatment room. --14:44 Triston Cassidy R.N. PHYSICAL ASSESSMENT Ambulatory to room. Patient gowned. GENERAL / NEURO / PSYCH: Alert. The patient does not appear to be in acute distress. Oriented X 4. HEENT: Pupils equal, round and reactive to light. RESPIRATORY: Respirations not labored. CVS: Pulses within normal limits. GI / : Abdomen nontender. SKIN: Skin is warm and dry. --14:45 Triston Cassidy R.N. NURSING PROGRESS NOTES Patient identifiers checked. Call light placed in reach. Side rails up x 1. Bed placed in lowest position. Brakes of bed on. Patient ready for evaluation- chart flagged. --14:45 Triston Cassidy R.N. DISPOSITION / DISCHARGE Departure time: 1505 PM. Condition at departure: stable. The goals identified in the patient's plan of care were met. No learning barriers present. Discharge instructions provided and reviewed with the patient. Reviewed warnings (s/s of infection). Reviewed wound care instructions ([facility] Patient verbalized understanding. Written instructions provided in E[place]. No medication instructions or referrals given to the patient. 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 She was discharged home and unaccompanied at time of discharge. She left the Emergency Department ambulatory and via private vehicle. Patient driving. FALL RISK ASSESSMENT: Fall risk assessment completed. No fall risk identified. --15:02 Pearl Franco R.N. 15:00 09/24/16. BP: 109/71 (regular adult cuff) taken on the left arm, via an automated monitor, while sitting. HR: 89. RR: 15. O2 saturation: 98% on room air. Temp: 98 F (oral). Pain level now: 07/04. --15:02 Pearl Franco R.N. Locked/Released at 09/24/2016 18:50 by Pearl Franco R.N.
--- NOTE | 2016-09-24 18:50 | ED MED RECONCILIATION SUMMARY ---
Patient: GLADIS GARCIA Medication Reconciliation Report [facility] VisitID: [id number] [address] [place] [address] 51y, F Registration Date/Time: 09/24/2016 Weight: 95.2 kg Height/Length: 66 in. BMI: 33.9 ALLERGIES: No Known Drug Allergy The patient's Home Medications are listed below: THE FOLLOWING MEDICATIONS NEED TO BE RECONCILED: Aspirin Oral Maloxicam Omeprazole Oral 20 mg, 2x a day The source(s) of the original Home Medication information: patient The following Medications were given to the patient in the Emergency Department: None. The following Medications were prescribed to the patient: None.
--- NOTE | 2016-09-24 18:50 | ED DISCHARGE INSTRUCTIONS ---
Patient: GLADIS GARCIA General Instructions [facility] VisitID: [id number] [place] [address] 51y, F Registration Date/Time: 09/24/2016 Single abscess to the right axilla with incision and drainage (old). INSTRUCTIONS (motrin/ tylenol take all of your prescription antibiotics Hibiclens (Chlorhexidine) shower in 7 days). ADDITIONAL INFORMATION Abscess [Incision & Drainage] An abscess (sometimes called a boil) occurs when bacteria get trapped under the skin and begin to grow. Pus forms inside the abscess as the body responds to the bacteria. An abscess can occur with an insect bite, ingrown hair, blocked oil gland, pimple, cyst, or puncture wound. Treatment of your abscess has required an incision to drain the pus. If the abscess pocket was large, a gauze packing may have been inserted. This will need to be removed and possibly replaced on your next visit. Antibiotics are not required in the treatment of a simple abscess, unless the infection is spreading into the skin around the wound (known as cellulitis). Healing of the wound will take about one to two weeks depending on the size of the abscess. Healthy tissue will grow from the bottom and sides of the opening until it seals over. Home Care: The wound may drain for the first two days. Cover the wound with a clean dry dressing. If the dressing becomes soaked with blood or pus, change it. If a gauze packing was placed inside the abscess cavity, you may be advised to remove it yourself. You may do this in the shower. Once the packing is removed, you should wash the area in the shower or bath 3 to 4 times a day, until the skin opening has closed. If you were prescribed antibiotics, take them as directed until they are all gone. You may use acetaminophen (Tylenol) or ibuprofen (Motrin, Advil) to control pain, unless another pain medicine was prescribed. [ NOTE: If you have liver disease or ever had a stomach ulcer, talk with your doctor before using these medicines.] Follow Up with your doctor as advised by our staff. If a gauze packing was inserted in your wound, it should be removed in 1-2 days. Check your wound every day for the signs of worsening infection listed below. Get Prompt Medical Attention if any of the following occur: Increasing redness or swelling Red streaks in the skin leading away from the wound Increasing local pain or swelling Continued pus draining from the wound two days after treatment Fever of 100.4F (38C) or higher, or as directed by your healthcare provider You have been given the following additional information: Abscess, Incision And Drainage (Electronically signed by Ana Hancock P.A.-C 09/24/2016 15:10)
--- NOTE | 2016-09-24 18:50 | ED MED RECONCILIATION SUMMARY ---
Patient: GLADIS GARCIA Medication Reconciliation Report [facility] VisitID: [id number] [address] [place] [address] 51y, F Registration Date/Time: 09/24/2016 Weight: 95.2 kg Height/Length: 66 in. BMI: 33.9 ALLERGIES: No Known Drug Allergy The patient's Home Medications are listed below: THE FOLLOWING MEDICATIONS NEED TO BE RECONCILED: Aspirin Oral Maloxicam Omeprazole Oral 20 mg, 2x a day The source(s) of the original Home Medication information: patient The following Medications were given to the patient in the Emergency Department: None. The following Medications were prescribed to the patient: None.
--- NOTE | 2016-09-24 18:50 | ED MAR SUMMARY ---
..... Medication Administration Record [facility] [address] [place], [place] [id number] Patient: GLADIS GARCIA Visit ID: [id number] 51y, F Weight: 95.2 kg Height/Length: 66 in BMI: 33.9 ALLERGIES: No Known Drug Allergy
--- NOTE | 2016-09-24 18:50 | ED MAR SUMMARY ---
..... Medication Administration Record [facility] [address] [place] [id number] Patient: GLADIS GARCIA Visit ID: [id number] 51y, F Weight: 95.2 kg Height/Length: 66 in BMI: 33.9 ALLERGIES: No Known Drug Allergy
== END 2016-09-24 15:05 | disposition home or self-care (01) ==
LOC: ED SRH 14:27
DX: Z48.01 Encounter for change or removal of surgical wound dressing (principal); L02.411 Cutaneous abscess of right axilla